=== PATIENT | female | born 1965 | race Caucasian/White ===

== ENCOUNTER 2017-06-12 06:06 | Day surgery (SDC) | payer OTHER ==
[~2017-06-12] VITALS: Ht 152.4 cm; Wt 51.3 kg
[~2017-06-12 06:06] MED LIST: AMLO5TAB PO; ATOR10TA PO; CHOL20001 PO; GABA400C PO; LISI-420 PO; METF500T PO; OMEP40EC1 PO; SYN.1 PO
[2017-06-12] MEDS ORDERED: CLINDAMYCIN 600 MG in DEXTROSE 5% 50 ML IV SCH (06:20)
[2017-06-12] MEDS ORDERED: LISI30TA6 PO (07:12)
[2017-06-12] MEDS ORDERED: OMEP20TC12 PO (07:12)
[2017-06-12] MEDS ORDERED: LEVO0.114 PO (07:21)
[2017-06-12] MEDS ORDERED: VITAMIN D (07:21)
[2017-06-12] MEDS ORDERED: CALCIUM (07:21)
[2017-06-12] MEDS ORDERED: ceFAZolin 1,000 MG VIAL ONE (07:22)
[2017-06-12] MEDS ORDERED: BUPIVACAINE-MPF 0.25% 30 ML VIAL INJ ONE (07:23)
[2017-06-12] MEDS ORDERED: ONDANSETRON 4 MG/2 ML VIAL ONE (07:40)
[2017-06-12] MEDS ORDERED: SEVOFLURANE 250 ML BTL INH ONE (07:40)
[2017-06-12] MEDS ORDERED: DEXAMETHASONE 4 MG/ML VIAL ONE (07:40)
[2017-06-12] MEDS ORDERED: PROPOFOL 200 MG/20 ML VIAL IV ONE (07:40)
[2017-06-12] MEDS ORDERED: KETOROLAC 60 MG/2 ML VIAL IM ONE (07:40)
[2017-06-12] MEDS ORDERED: fentaNYL 0.05 MG/ML VIAL ONE (07:47)
[2017-06-12] MEDS ORDERED: MIDAZOLAM 2 MG/2 ML VIAL ONE (07:48)
[2017-06-12] MEDS ORDERED: MORPHINE SULFATE 4 MG/ML SYR ONE (07:48)
[2017-06-12] MEDS ORDERED: MORPHINE SULFATE 2 MG/ML SYR IVP PRN ×2 (08:10→09:25)
[2017-06-12] MEDS ORDERED: MIDAZOLAM 2 MG/2 ML VIAL IV ONE (08:10)
[2017-06-12] MEDS ORDERED: METOCLOPRAMIDE 10 MG/2 ML INJ VIAL IVP PRN (08:10)
[2017-06-12] MEDS ORDERED: MORPHINE SULFATE 4 MG/ML SYR IVP PRN ×3 (08:10→09:25)
[2017-06-12] MEDS ORDERED: ACETAMINOPHEN/CODEINE 300/30MG 1 TAB PO PRN (09:25)
[2017-06-12] MEDS ORDERED: MORPHINE SULFATE 4 MG/ML SYR IVP ONE (10:05)
== END 2017-06-12 10:40 | disposition home or self-care (01) ==
LOC: MDS 06:06 → MMU 06:06 → MDS 10:40
PROVIDERS: ATTEND Surgery
DX: K40.90 Unilateral inguinal hernia, without obstruction or gangrene, not specified as recurrent (principal); I10 Essential (primary) hypertension; E89.0 Postprocedural hypothyroidism; E03.9 Hypothyroidism, unspecified; E78.5 Hyperlipidemia, unspecified; Z88.0 Allergy status to penicillin
CPT/HCPCS: 49505; 71010; 93005; J0690; J2250; J2270; J3010; J3490; J7060; J7120; J1100; J1885; J2405; J2704

== ENCOUNTER 2017-09-04 08:00 | Day surgery (SDC) | payer OTHER ==
[~2017-09-04] VITALS: Ht 152.4 cm; Wt 51.3 kg
[~2017-09-04 08:00] MED LIST changes: +CALCIUM; +LEVO0.114 PO; +LISI30TA6 PO; +OMEP20TC12 PO; +VITAMIN D
[2017-09-04] MEDS ORDERED: CLINDAMYCIN 600 MG in DEXTROSE 5% 50 ML IV SCH (08:35)
[2017-09-04] MEDS ORDERED: BUPIVACAINE-MPF 0.25% 30 ML VIAL INJ ONE (10:36)
[2017-09-04] MEDS ORDERED: DESFLURANE 240 ML BTL INH ONE (10:42)
[2017-09-04] MEDS ORDERED: DEXAMETHASONE 4 MG/ML VIAL ONE (10:42)
[2017-09-04] MEDS ORDERED: KETOROLAC 30 MG/ML VIAL ONE (10:42)
[2017-09-04] MEDS ORDERED: PROPOFOL 200 MG/20 ML VIAL IV ONE (10:42)
[2017-09-04] MEDS ORDERED: fentaNYL 0.05 MG/ML VIAL ONE (10:44)
[2017-09-04] MEDS ORDERED: HYDROmorphone PFS 2 MG/ML SYR ONE (10:44)
[2017-09-04] MEDS ORDERED: CLINDAMYCIN 600 MG/4 ML VIAL ONE (10:48)
[2017-09-04] MEDS ORDERED: HYDROcodone/APAP 5/325 MG 1 TAB TAB PO PRN (12:20)
[2017-09-04] MEDS ORDERED: ACETAMINOPHEN 325 MG TAB PO PRN (12:20)
[2017-09-04] MEDS ORDERED: MORPHINE SULFATE 2 MG/ML SYR IVP PRN (12:20)
[2017-09-04] MEDS ORDERED: HYDROmorphone PFS 2 MG/ML SYR IVP PRN ×2 (12:20→12:35)
[2017-09-04] MEDS ORDERED: MORPHINE SULFATE 4 MG/ML SYR IV PRN (12:20)
[2017-09-04] MEDS ORDERED: ONDANSETRON 4 MG/2 ML VIAL IVP PRN (12:35)
[2017-09-04] MEDS: HYDROmorphone PFS 2 MG/ML SYR ONE ×2 (12:35→12:45)
[2017-09-04] MEDS ORDERED: ONDANSETRON 4 MG/2 ML VIAL IV PRN (13:30)
== END 2017-09-04 14:15 | disposition home or self-care (01) ==
LOC: MMU 08:00 → MDS 08:00
PROVIDERS: ATTEND Surgery
DX: K40.91 Unilateral inguinal hernia, without obstruction or gangrene, recurrent (principal); I10 Essential (primary) hypertension; K21.9 Gastro-esophageal reflux disease without esophagitis; E03.9 Hypothyroidism, unspecified; Z98.890 Other specified postprocedural states; Z88.0 Allergy status to penicillin; Z88.8 Allergy status to other drugs, medicaments and biological substances; Z79.899 Other long term (current) drug therapy; E89.0 Postprocedural hypothyroidism; Z82.49 Family history of ischemic heart disease and other diseases of the circulatory system; Z90.710 Acquired absence of both cervix and uterus
CPT/HCPCS: 49505; 71045; 93005; J1100; J1170; J1885; J2704; J3490; J7060; J7120; Q0092; C1781; J3010